=== PATIENT | male | born 1960 | race Caucasian/White ===

== ENCOUNTER 2021-01-30 15:05 | Inpatient (IN) ==
[~2021-01-30 15:05] MED LIST: HEPARIN 5,000 UNIT/1 ML VIAL ONE; HEPARIN/NACL 0.9% 2 UNITS/ML 1,000 UNIT/500 ML BAG IV ONE; LIDOCAINE 1% 20 ML VIAL ONE; METOPROLOL TARTRATE 5 MG/5 ML VIAL IV ONE; MIDAZOLAM 2 MG/2 ML VIAL ONE; fentaNYL 100 MCG/2 ML VIAL ONE
[2021-01-30] MEDS ORDERED: MORPHINE 10 MG/1 ML VIAL ONE (15:06)
[2021-01-30] MEDS ORDERED: HEPARIN 5,000 UNIT/1 ML VIAL ONE (15:09)
[2021-01-30] MEDS ORDERED: MIDAZOLAM 2 MG/2 ML VIAL ONE (15:13)
[2021-01-30] MEDS ORDERED: TICAGRELOR 90 MG TABLET ONE (15:20)
[2021-01-30] MEDS ORDERED: HYDROmorphone 2 MG/1 ML VIAL ONE (15:29)
[2021-01-30] MEDS ORDERED: NITROPRUSSIDE 50 MG/2 ML VIAL ONE (15:33)
[2021-01-30] MEDS ORDERED: TIROFIBAN 5,000 MCG/100 ML PREMIX IV ONE (15:34)
[2021-01-30 15:54] LABS: Basophils % 0.1 % (0.0-0.8); Eosinophils # 0.1 10*3/uL (0.0-0.87); Eosinophils % 1.1 % (0.00-10.9); Hematocrit 41.4 VOL% (42.0-52.0); Hemoglobin 13.7 GM/DL (14.0-18.0); Immature Granulocytes % 0.2 %; Immature Granulocytes Absolute 0.02 #; Lymphocytes # 0.9 10*3/uL (1.4-4.0); Lymphocytes % 9.9 % (21.2-54.2); Mean Corpuscular HGB Conc 33.1 GM/DL (32-36); Mean Corpuscular Volume 88.7 FL (87-102); Monocytes % 5.8 % (1.7-12.7); Neutrophils % 82.9 % (38.7-73.9); Platelet Count 298 T/CUMM (130-400); Red Blood Count 4.67 MC/CUMM (3.8-5.5); Red Cell Distribution Width 13.4 % (9.3-17.3); White Blood Count 8.8 T/CUMM (4-12)
[2021-01-30] MEDS ORDERED: NITROGLYCERIN SL 0.4 MG TABLET SL PRN (15:54)
[2021-01-30] MEDS ORDERED: ONDANSETRON 4 MG/2 ML VIAL IV PRN (15:54)
[2021-01-30] MEDS ORDERED: SODIUM CHLORIDE 0.9% 1,000 ML IV SCH (16:00)
[2021-01-30] MEDS ORDERED: hydrALAZINE 20 MG/1 ML VIAL IV PRN (16:02)
[2021-01-30] MEDS ORDERED: HEPARIN/NACL 0.9% 2 UNITS/ML 2,000 UNIT/1,000 ML BAG IV ONE (16:05)
[2021-01-30 16:23] LABS: CKMB % 7.2 %; Calcium 8.2 MG/DL (8.5-10.1); Osmolality,Calculated 284.1 MOS/KG (273-304); Potassium 4.1 MMOL/L (3.5-5.1); Risk Ratio 6.24; VLDL Cholesterol 20.8 MG/DL
[2021-01-30 16:31] LABS: High Sensitive Troponin I* 14551.9 ng/L (0-78)
[2021-01-30] MEDS: ROSUVASTATIN 20 MG TABLET PO SCH (20:36)
[2021-01-30] MEDS: TICAGRELOR 90 MG TABLET PO SCH (20:37)
[2021-01-30] MEDS: MORPHINE 2 MG/1 ML SYRINGE IV PRN ×2 (20:49→23:21)
[2021-01-30] MEDS ORDERED: carvediloL 3.125 MG TABLET PO SCH (21:00)
[2021-01-30] MEDS: ZALEPLON 5 MG CAPSULE PO PRN (23:09)
[2021-01-31] MEDS: MORPHINE 2 MG/1 ML SYRINGE IV PRN (05:56)
[2021-01-31] MEDS ORDERED: METOPROLOL TARTRATE 5 MG/5 ML VIAL IV ONE ×2 (06:22→06:44)
[2021-01-31 06:28] LABS: Basophils % 0.2 % (0.0-0.8); Eosinophils # 0.1 10*3/uL (0.0-0.87); Eosinophils % 1.2 % (0.00-10.9); Hematocrit 42.6 VOL% (42.0-52.0); Hemoglobin 13.9 GM/DL (14.0-18.0); Immature Granulocytes % 0.2 %; Immature Granulocytes Absolute 0.02 #; Mean Corpuscular HGB Conc 32.6 GM/DL (32-36); Mean Corpuscular Volume 89.3 FL (87-102); Mean Platelet Volume 8.9 FL (9.6-12.0); Monocytes % 9.9 % (1.7-12.7); Neutrophils % 77.5 % (38.7-73.9); Platelet Count 291 T/CUMM (130-400); Red Blood Count 4.77 MC/CUMM (3.8-5.5); Red Cell Distribution Width 13.4 % (9.3-17.3); White Blood Count 9.2 T/CUMM (4-12)
[2021-01-31 06:58] LABS: Calcium 8.7 MG/DL (8.5-10.1); Osmolality,Calculated 272.8 MOS/KG (273-304); Potassium 3.9 MMOL/L (3.5-5.1)
[2021-01-31] MEDS: ASPIRIN EC 81 MG TABLET PO SCH (08:19)
[2021-01-31] MEDS: TICAGRELOR 90 MG TABLET PO SCH ×2 (08:19→21:00)
[2021-01-31] MEDS: PANTOPRAZOLE 40 MG TABLET PO SCH (08:20)
[2021-01-31] MEDS: POTASSIUM CHLORIDE 20 MEQ TABLET PO SCH (08:20)
[2021-01-31] MEDS: LOSARTAN 25 MG TABLET PO SCH (08:20)
[2021-01-31] MEDS: FUROSEMIDE 40 MG TABLET PO SCH (08:20)
[2021-01-31] MEDS: MAGNESIUM OXIDE 400 MG TABLET PO SCH ×2 (08:22→21:00)
[2021-01-31] MEDS: carvediloL 3.125 MG TABLET PO SCH ×2 (08:22→21:00)
[2021-01-31] MEDS ORDERED: ACETAMINOPHEN 325 MG TABLET PO PRN (08:48)
[2021-01-31] MEDS ORDERED: CLORAZEPATE 3.75 MG TABLET PO PRN (08:49)
[2021-01-31] MEDS ORDERED: KETOROLAC 30 MG/1 ML VIAL IV ONE (14:23)
[2021-01-31] MEDS: ROSUVASTATIN 20 MG TABLET PO SCH (20:59)
[2021-01-31] MEDS: ZALEPLON 5 MG CAPSULE PO PRN (21:08)
[2021-02-01 04:47] LABS: Basophils % 0.3 % (0.0-0.8); Eosinophils # 0.2 10*3/uL (0.0-0.87); Eosinophils % 2.3 % (0.00-10.9); Hematocrit 43.3 VOL% (42.0-52.0); Hemoglobin 14.4 GM/DL (14.0-18.0); Immature Granulocytes % 0.3 %; Immature Granulocytes Absolute 0.03 #; Lymphocytes # 1.4 10*3/uL (1.4-4.0); Lymphocytes % 16.4 % (21.2-54.2); Mean Corpuscular HGB Conc 33.3 GM/DL (32-36); Mean Corpuscular Volume 89.8 FL (87-102); Mean Platelet Volume 9.2 FL (9.6-12.0); Monocytes % 11.4 % (1.7-12.7); Neutrophils % 69.3 % (38.7-73.9); Platelet Count 293 T/CUMM (130-400); Red Blood Count 4.82 MC/CUMM (3.8-5.5); Red Cell Distribution Width 13.4 % (9.3-17.3); White Blood Count 8.6 T/CUMM (4-12)
[2021-02-01 05:14] LABS: Calcium 9.1 MG/DL (8.5-10.1); Osmolality,Calculated 277.8 MOS/KG (273-304); Potassium 3.8 MMOL/L (3.5-5.1)
[2021-02-01] MEDS: ASPIRIN EC 81 MG TABLET PO SCH (08:58)
[2021-02-01] MEDS: PANTOPRAZOLE 40 MG TABLET PO SCH (08:58)
[2021-02-01] MEDS: TICAGRELOR 90 MG TABLET PO SCH (08:58)
[2021-02-01] MEDS: MAGNESIUM OXIDE 400 MG TABLET PO SCH (08:58)
[2021-02-01] MEDS: LOSARTAN 25 MG TABLET PO SCH (08:58)
[2021-02-01] MEDS: POTASSIUM CHLORIDE 20 MEQ TABLET PO SCH (08:59)
[2021-02-01] MEDS: FUROSEMIDE 40 MG TABLET PO SCH (08:59)
[2021-02-01] MEDS: carvediloL 3.125 MG TABLET PO SCH (08:59)
[2021-02-01 12:28] VITALS: BP 120/71
== END 2021-02-01 16:23 | disposition home or self-care (01) | DRG 247 ==
LOC: N.CL 15:05 → N.ICU 16:09 → N.TELEN 01-31 13:43
PROVIDERS: ADMIT Internal Medicine Cardiovascular Disease; ATTEND Internal Medicine Cardiovascular Disease
PROC: CLCCHCL (ICD-10-PCS; 2021-01-30 15:15)